=== PATIENT | female | born 1990 | race Hispanic/Latino ===

== ENCOUNTER 2021-04-17 11:40 | Outpatient (CLI) | payer MEDICAID ==
[2021-04-17 12:17] LABS: Basophils # (Auto) 0.1 K/mm3 (0.0-0.1); Basophils % (Auto) 0.7 % (0.0-1.8); Eosinophils # (Auto) 0.2 K/mm3 (0.0-0.4); Eosinophils % (Auto) 2.3 % (0.0-4.3); Hematocrit 39.1 % (30.3-42.9); Hemoglobin 13.4 gm/dl (10.1-14.3); Lymphocytes # (Auto) 2.2 K/mm3 (1.2-5.4); Lymphocytes % (Auto) 28.8 % (13.4-35.0); Mean Corpuscular HGB Conc 34 % (30-34); Mean Corpuscular Volume 91 fl (79-97); Monocytes # (Auto) 0.5 K/mm3 (0.0-0.8); Monocytes % (Auto) 6.7 % (0.0-7.3); Platelet Count 262 K/mm3 (140-440); Red Cell Distribution Width 12.8 % (13.2-15.2)
[2021-04-17 12:33] LABS: Alanine Aminotransferase 89 units/L (7-56); Albumin 4.7 g/dL (3.9-5); Blood Urea Nitrogen 9 mg/dL (7-17); Calcium 9.4 mg/dL (8.4-10.2); Chol/HDL Ratio 5.26 %; HDL Cholesterol 42 mg/dL (40-59); Hemolysis Index 0; Iron 55 ug/dL (37-170); LDL Cholesterol,Direct 161 mg/dL (50-130); Total Iron Binding Capacity 397 mcg/dL (250-450)
[2021-04-17 12:39] LABS: BUN/Creatinine Ratio 15
[2021-04-22 17:15] LABS: Vitamin D, 25-OH, D2 <4 ng/mL
== END 2021-04-17 11:41 | disposition home or self-care (01) ==
LOC: LAB 11:40
PROVIDERS: ATTEND Surgery
DX: E11.9 Type 2 diabetes mellitus without complications (principal); K30 Functional dyspepsia; E55.9 Vitamin D deficiency, unspecified; K90.9 Intestinal malabsorption, unspecified; E66.01 Morbid (severe) obesity due to excess calories
CPT/HCPCS: 36415; 80053; 80061; 82306; 82607; 82728; 83036; 83550; 84443; 85025; 85730

== ENCOUNTER 2021-07-04 09:26 | Outpatient (CLI) | payer MEDICAID ==
--- NOTE | 2021-07-04 11:33 | Fluoroscopy Report ---
ESOPHAGRAM INDICATION / CLINICAL INFORMATION: MORBID OBESITY TECHNIQUE: Esophagram was performed with double contrast barium and air. COMPARISON: None available. FINDINGS: MOTILITY: No significant abnormality. MUCOSA: No significant abnormality. MASS: None. STRICTURE: None. HIATAL HERNIA: None. REFLUX: None. BARIUM TABLET: Tablet passed into the stomach without delay. ADDITIONAL FINDINGS: None. Fluoroscopy time: 1.3 minutes. Fluoroscopy images: 16. IMPRESSION: 1. No significant abnormality. Signer Name: Basil Cullen MD Signed: 07/04/2021 11:28 AM Workstation Name: [id number]
--- NOTE | 2021-07-04 12:19 | XRay Report ---
CHEST PA AND LATERAL VIEWS INDICATION: MORBID OBESITY/CL. FOR SURGERY. COMPARISON: None. FINDINGS: Support devices: None. Heart: Within normal limits. Lungs/Pleura: No acute pulmonary or pleural findings. IMPRESSION: 1. No acute findings. Signer Name: Finesse Peña MD Signed: 07/04/2021 12:11 PM Workstation Name: [id number]
--- NOTE | 2021-07-04 13:06 | Electrocardiograph Report ---
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
== END 2021-07-04 09:27 | disposition home or self-care (01) ==
LOC: FLUORO 09:26
PROVIDERS: ATTEND Surgery
DX: R00.1 Bradycardia, unspecified (principal); E66.01 Morbid (severe) obesity due to excess calories
CPT/HCPCS: 71046; 74220; 93005

== ENCOUNTER 2021-07-21 09:16 | Outpatient (CLI) | payer MEDICAID ==
--- NOTE | 2021-07-21 12:00 | Treadmill Report ---
DATE OF SERVICE: 07/21/2021 TREADMILL STRESS TEST REFERRING PHYSICIAN: Dr. White. DATE OF SERVICE: 07/21/2021 PROTOCOL: The patient was brought to the stress lab in a postabsorptive state and exercised under standard Albert protocol treadmill. Resting blood pressure is 110/80, normal baseline EKG. The patient exercised for a total of 8 minutes on a standard Albert protocol to achieve a peak heart rate of 170. There were no diagnostic ST changes, arrhythmias, or chest pain during stress or recovery. The patient tolerated the procedure well. CONCLUSIONS: 1. Normal exercise stress test without evidence of diagnostic ST changes, arrhythmias, or chest pain during stress or recovery. 2. Average exercise tolerance. 3. Appropriate heart rate/blood pressure response in recovery. TID: [id number] RECEIPT: [id number] [facility]
--- NOTE | 2021-07-25 10:25 | Treadmill Report ---
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
== END 2021-07-21 09:17 | disposition home or self-care (01) ==
LOC: PF 09:16
PROVIDERS: ATTEND Surgery
DX: E66.01 Morbid (severe) obesity due to excess calories (principal)
CPT/HCPCS: 93017; 94010